=== PATIENT | male | born 1995 | race Caucasian/White ===

== ENCOUNTER 2022-06-24 14:48 | Emergency (ER) | payer BC ==
[~2022-06-24] VITALS: Ht 162.6 cm; Wt 61.2 kg
[2022-06-24 15:30] VITALS: BP 138/80
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
[2022-06-24] MEDS ORDERED: KETOROLAC 30 MG/ML VIAL IM ONE (15:55)
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
[2022-06-24] MEDS ORDERED: IBUP-2213 PO (16:58)
[2022-06-24] MEDS ORDERED: LID5T TP (16:59)
[2022-06-24] MEDS ORDERED: BACI-416 TP (16:59)
--- NOTE | 2022-06-24 17:20 | NUR ---
Patient discharged with v/s stable. Written and verbal after care instructions given and explained. Patient alert, oriented and verbalized understanding of instructions. Ambulatory with steady gait. All questions addressed prior to discharge. ID band removed. Patient advised to follow up with PMD. Rx of BACITRACIN, IBUPROFEN AND LIDOCAINE HYD given. Patient educated on indication of medication including possible reaction and side effects. Opportunity to ask questions provided and answered.
== END 2022-06-24 17:20 | disposition home or self-care (01) ==
LOC: MED 14:48
DX: S46.911A Strain of unspecified muscle, fascia and tendon at shoulder and upper arm level, right arm, initial encounter (principal); S00.81XA Abrasion of other part of head, initial encounter; X58.XXXA Exposure to other specified factors, initial encounter; Y93.89 Activity, other specified; Y92.89 Other specified places as the place of occurrence of the external cause; Y99.8 Other external cause status
CPT/HCPCS: 73030; 96372; 99283; J1885

== ENCOUNTER 2023-08-17 20:34 | Emergency (ER) | payer BC ==
[~2023-08-17] VITALS: Ht 162.6 cm; Wt 61.2 kg
[~2023-08-17 20:34] MED LIST: BACI-418 TP; IBUP-2213 PO; LID5T TP
[2023-08-17 20:40] VITALS: BP 129/77; PULSE 70; RESP 17; TEMP 97.7; O2SAT 99
== END 2023-08-17 22:42 | disposition home or self-care (01) ==
LOC: MED 20:34
DX: E86.0 Dehydration (principal); Z79.899 Other long term (current) drug therapy
CPT/HCPCS: 93005; 99283